=== PATIENT | female | born 1980 | race Caucasian/White ===

== ENCOUNTER 2022-10-11 20:40 | Emergency (ER) | payer SELFPAY ==
[2022-10-11 21:51] LABS: #Eosinphils 0.1 thou/uL (0.0-0.7); #Lymphocytes 1.7 thou/uL (1.20-3.40); #Monocytes 0.5 thou/uL (0.11-0.59); #Neutrophils 8.1 thou/uL (1.40-6.50); %Basophils 0.3 % (0.0-1.0); %Eosinophils 0.9 % (0.0-10.0); %Lymphocytes 16.2 % (21.0-51.0); %Monocytes 4.7 % (0.0-10.0); %Neutrophils 77.9 % (42.0-75.0); Hemoglobin 13.7 g/dL (12.0-16.0); Mean Corpuscular HGB CONC 34.7 g/dL (32.0-36.0); Mean Corpuscular Hemoglobin 31.4 pg (27.0-31.0); Mean Corpuscular Volume 90.7 fl (78.0-98.0); Mean Platelet Volume 9.2 fL (7.4-10.4); Platelet Count 173 10x3/uL (130-400); RBC Distribution Width 12.9 % (11.5-14.5); Red Blood Cell (RBC) Count 4.36 mill/uL (4.20-5.40); White Blood Cell (WBC) Count 10.4 10x3/uL (4.8-10.8)
[2022-10-11 22:05] LABS: ALT (SGPT) 122 U/L (8-55); AST (SGOT) 213 U/L (5-34); Alkaline Phosphatase 90 U/L (40-110); Anion Gap 16 mmol/L (10-20); BUN (Urea Nitrogen) 8 mg/dL (7.0-18.7); Bilirubin, Total 0.8 mg/dL (0.2-1.2); Calc. Creatinine Clearance 0 mL/min (70-130); Carbon Dioxide 23 mmol/L (22-29); Chloride 102 mmol/L (98-107); Estimated GFR 114; Globulin 2.9 g/dL (2.4-3.5); Glucose 104 mg/dL (70-105); Lipase 63 U/L (8-78); Potassium 3.6 mmol/L (3.5-5.1); Protein, Total 6.9 g/dL (6.0-8.3); Sodium 137 mmol/L (136-145)
== END 2022-10-11 22:19 | disposition left against medical advice (07) ==
LOC: ERS 20:40
DX: Z53.21 Procedure and treatment not carried out due to patient leaving prior to being seen by health care provider (principal)
CPT/HCPCS: 36415; 80053; 83690; 85025

== ENCOUNTER 2023-02-04 23:31 | Inpatient (IN) | payer OTHER ==
[2023-02-05] MEDS ORDERED: Ondansetron ODT 4 MG TAB PO PRN (01:02)
[2023-02-05] MEDS ORDERED: Senokot S 8.6-50 MG TAB PO PRN (01:02)
[2023-02-05] MEDS ORDERED: Acetaminophen 325 MG TAB PO PRN (01:02)
[2023-02-05 05:57] VITALS: BMI 22.7
[2023-02-05] MEDS: D5 1/2 NS w/20 mEq KCL 1,000 ML IV SCH ×3 (06:32→15:46)
[2023-02-05 06:35] LABS: #Basophils 0.1 thou/uL (0.0-0.2); #Eosinphils 0.3 thou/uL (0.0-0.7); #Monocytes 0.4 thou/uL (0.11-0.59); #Neutrophils 4.8 thou/uL (1.40-6.50); %Basophils 0.6 % (0.0-1.0); %Eosinophils 3.1 % (0.0-10.0); %Lymphocytes 31.2 % (21.0-51.0); %Monocytes 4.6 % (0.0-10.0); %Neutrophils 60.3 % (42.0-75.0); Hemoglobin 10.2 g/dL (12.0-16.0); Mean Corpuscular HGB CONC 32.3 g/dL (32.0-36.0); Mean Corpuscular Hemoglobin 26.6 pg (27.0-31.0); Mean Corpuscular Volume 82.5 fl (78.0-98.0); Mean Platelet Volume 11.7 fL (7.4-10.4); Platelet Count 179 10x3/uL (130-400); RBC Distribution Width 14.3 % (11.5-14.5); Red Blood Cell (RBC) Count 3.83 mill/uL (4.20-5.40)
[2023-02-05 07:00] LABS: ALT (SGPT) 134 U/L (8-55); AST (SGOT) 145 U/L (5-34); Albumin 3.4 g/dL (3.5-5.0); Alkaline Phosphatase 129 U/L (40-110); Anion Gap 11 mmol/L (10-20); BUN (Urea Nitrogen) 6 mg/dL (7.0-18.7); Bilirubin, Total 0.5 mg/dL (0.2-1.2); Calc. Creatinine Clearance 112 mL/min (70-130); Calcium 7.9 mg/dL (7.8-10.44); Carbon Dioxide 21 mmol/L (22-29); Chloride 110 mmol/L (98-107); Estimated GFR 111; Globulin 2.2 g/dL (2.4-3.5); Glucose 91 mg/dL (70-105); Potassium 3.2 mmol/L (3.5-5.1); Protein, Total 5.6 g/dL (6.0-8.3); Sodium 139 mmol/L (136-145)
[2023-02-05] MEDS ORDERED: Morphine 2 MG/ML VIAL SLOW IVP PRN ×2 (08:14→14:34)
[2023-02-05] MEDS: Ondansetron PF 4 MG/2 ML Vial IVP PRN ×2 (08:26→17:53)
[2023-02-05] MEDS ORDERED: Famotidine 20 MG TAB PO SCH (09:00)
[2023-02-05] MEDS ORDERED: Famotidine/PF 20 mg/2ml Vial SLOW IVP SCH (09:00)
[2023-02-05] MEDS ORDERED: Ketorolac Tromethamine 30 MG/ML VIAL IVP SCH (09:45)
[2023-02-05] MEDS ORDERED: Pantoprazole 40 MG VIAL IVP SCH (09:45)
[2023-02-05] MEDS ORDERED: Potassium Chloride 40 MEQ in Premix Bag 1 BAG IVPB SCH (10:00)
[2023-02-05] MEDS ORDERED: Piperacillin/Tazobactam 3.375 GM in Sodium Chloride 0.9% 100 ML IVPB SCH ×2 (10:00→12:00)
[2023-02-05] MEDS: Potassium Chloride 20 MEQ in Premix Bag 1 BAG IVPB SCH (11:33)
[2023-02-05] MEDS ORDERED: Bupivacaine HCl 0.5%/Epinephrine 1:200,000/PF 30 ml Vial ONE (12:31)
[2023-02-05] MEDS ORDERED: Iopamidol 15 ML ONE ×2 (12:31→13:43)
[2023-02-05] MEDS ORDERED: Midazolam HCl 2 mg/2 ml Vial ONE ×2 (12:44→13:06)
[2023-02-05] MEDS ORDERED: fentaNYL 50 mcg/mL 1 mL Vial ONE (12:44)
[2023-02-05] MEDS ORDERED: fentaNYL PF 100 MCG/2 ML SYRINGE ONE (12:44)
[2023-02-05] MEDS ORDERED: SUGAMMADEX SODIUM 200 MG/2 ML VIAL ONE (12:44)
[2023-02-05] MEDS ORDERED: Ketorolac Tromethamine 30 MG/ML VIAL ONE (13:00)
[2023-02-05] MEDS ORDERED: Rocuronium Bromide 10 MG/ML (10ML VIAL) ONE (13:00)
[2023-02-05] MEDS ORDERED: Esmolol 100 MG/10 ML VIAL ONE (13:00)
[2023-02-05] MEDS ORDERED: Ondansetron PF 4 MG/2 ML Vial ONE (13:00)
[2023-02-05] MEDS ORDERED: PROPOFOL 200 MG/20 ML VIAL ONE (13:00)
[2023-02-05] MEDS ORDERED: Lidocaine 1% PF 5 ML VIAL ONE (13:00)
[2023-02-05] MEDS ORDERED: Dexamethasone 20 MG/5 ML VIAL ONE (13:00)
[2023-02-05] MEDS ORDERED: HYDROmorphone 2 MG/ML VIAL ONE (13:06)
[2023-02-05] MEDS ORDERED: Dexmedetomidine 200 MCG/2 ML VIAL ONE (13:13)
[2023-02-05] MEDS ORDERED: Glucagon 1 MG/ML KIT ONE (13:43)
[2023-02-05] MEDS ORDERED: HYDROcodone/Acetaminophen 5/325 mg Tablet PO PRN (14:34)
[2023-02-05] MEDS: Piperacillin/Tazobactam 3.375 GM in Sodium Chloride 0.9% 100 ML IVPB SCH ×2 (15:46→22:35)
[2023-02-05] MEDS: Morphine 4 MG/ML VIAL SLOW IVP PRN ×2 (17:55→20:45)
[2023-02-05] MEDS: Pantoprazole 40 MG VIAL IVP SCH (20:53)
[2023-02-06] MEDS: HYDROcodone/Acetaminophen 5/325 mg Tablet PO PRN ×3 (01:31→18:21)
[2023-02-06] MEDS: Piperacillin/Tazobactam 3.375 GM in Sodium Chloride 0.9% 100 ML IVPB SCH ×3 (05:58→21:40)
[2023-02-06] MEDS: Morphine 4 MG/ML VIAL SLOW IVP PRN ×2 (05:58→21:41)
[2023-02-06 06:40] LABS: #Monocytes 0.6 thou/uL (0.11-0.59); #Neutrophils 8.4 thou/uL (1.40-6.50); %Basophils 0.3 % (0.0-1.0); %Eosinophils 0.1 % (0.0-10.0); %Lymphocytes 15.2 % (21.0-51.0); %Monocytes 5.6 % (0.0-10.0); %Neutrophils 78.6 % (42.0-75.0); Hemoglobin 10.1 g/dL (12.0-16.0); Mean Corpuscular HGB CONC 32.6 g/dL (32.0-36.0); Mean Corpuscular Hemoglobin 26.7 pg (27.0-31.0); Mean Platelet Volume 12.1 fL (7.4-10.4); Platelet Count 175 10x3/uL (130-400); RBC Distribution Width 14.3 % (11.5-14.5); Red Blood Cell (RBC) Count 3.78 mill/uL (4.20-5.40); White Blood Cell (WBC) Count 10.7 10x3/uL (4.8-10.8)
[2023-02-06 07:07] LABS: ALT (SGPT) 250 U/L (8-55); AST (SGOT) 259 U/L (5-34); Albumin 3.5 g/dL (3.5-5.0); Alkaline Phosphatase 162 U/L (40-110); Anion Gap 12 mmol/L (10-20); BUN (Urea Nitrogen) 5 mg/dL (7.0-18.7); Bilirubin, Total 0.7 mg/dL (0.2-1.2); Calc. Creatinine Clearance 105 mL/min (70-130); Calcium 8.6 mg/dL (7.8-10.44); Carbon Dioxide 22 mmol/L (22-29); Chloride 106 mmol/L (98-107); Estimated GFR 106; Globulin 2.5 g/dL (2.4-3.5); Glucose 104 mg/dL (70-105); Potassium 3.7 mmol/L (3.5-5.1); Sodium 136 mmol/L (136-145)
[2023-02-06] MEDS ORDERED: fentaNYL 50 mcg/mL 1 mL Vial ONE ×2 (07:57→10:02)
[2023-02-06] MEDS ORDERED: SUGAMMADEX SODIUM 200 MG/2 ML VIAL ONE (07:58)
[2023-02-06] MEDS: Pantoprazole 40 MG VIAL IVP SCH (08:04)
[2023-02-06] MEDS ORDERED: Iopamidol 30 ML ONE (08:11)
[2023-02-06] MEDS ORDERED: Indomethacin 50 MG SUPP ONE (08:11)
[2023-02-06] MEDS ORDERED: HYDROmorphone 0.5 MG/0.5 ML SYRINGE ONE (08:13)
[2023-02-06] MEDS ORDERED: Dexmedetomidine 200 MCG/2 ML VIAL ONE (08:19)
[2023-02-06] MEDS ORDERED: Midazolam HCl 2 mg/2 ml Vial ONE (08:19)
[2023-02-06] MEDS: D5 1/2 NS w/20 mEq KCL 1,000 ML IV SCH ×2 (08:23→17:55)
[2023-02-06] MEDS ORDERED: Rocuronium Bromide 10 MG/ML (10ML VIAL) ONE (08:49)
[2023-02-06] MEDS ORDERED: Succinylcholine 200 MG/10 ml SYRINGE FS ONE (08:49)
[2023-02-06] MEDS ORDERED: Dexamethasone 20 MG/5 ML VIAL ONE (08:49)
[2023-02-06] MEDS ORDERED: Ondansetron PF 4 MG/2 ML Vial ONE (08:49)
[2023-02-06] MEDS ORDERED: Glycopyrrolate 0.2 MG/ML 5 ML SYRINGE ONE (08:49)
[2023-02-06] MEDS ORDERED: Lidocaine 1% PF 5 ML VIAL ONE (08:49)
[2023-02-06] MEDS ORDERED: PROPOFOL 200 MG/20 ML VIAL ONE (08:49)
[2023-02-06] MEDS ORDERED: HYDROmorphone 2 MG/ML VIAL SLOW IVP PRN (09:13)
[2023-02-06] MEDS ORDERED: Morphine Sulfate 2 MG/ML SYRINGE SLOW IVP PRN (09:13)
[2023-02-06] MEDS ORDERED: Ondansetron HCl/PF 4 MG/2 ML Vial IVP PRN (09:13)
[2023-02-06] MEDS ORDERED: Promethazine HCl 25 MG/ML VIAL IM PRN (09:13)
[2023-02-06] MEDS ORDERED: Meperidine HCl/PF 25 MG/ML VIAL SLOW IVP PRN (09:13)
[2023-02-06] MEDS ORDERED: Meperidine HCl/PF 25 MG/ML VIAL ONE (10:13)
[2023-02-06] MEDS ORDERED: D5 1/2 NS w/20 mEq KCL 1,000 ML ONE (10:35)
[2023-02-06] MEDS: Ondansetron PF 4 MG/2 ML Vial IVP PRN (11:21)
[2023-02-06] MEDS: Ketorolac Tromethamine 30 MG/ML VIAL IVP SCH (11:21)
[2023-02-06] MEDS: Simethicone Chewable 80 MG TAB PO PRN (15:48)
[2023-02-07] MEDS: Pantoprazole 40 MG VIAL IVP SCH ×2 (00:11→08:07)
[2023-02-07 00:59] VITALS: TEMP 98
[2023-02-07] MEDS: Piperacillin/Tazobactam 3.375 GM in Sodium Chloride 0.9% 100 ML IVPB SCH (06:27)
[2023-02-07 06:47] LABS: #Monocytes 0.6 thou/uL (0.11-0.59); #Neutrophils 5.8 thou/uL (1.40-6.50); %Basophils 0.4 % (0.0-1.0); %Eosinophils 0.4 % (0.0-10.0); %Lymphocytes 28.2 % (21.0-51.0); %Monocytes 6.4 % (0.0-10.0); %Neutrophils 64.3 % (42.0-75.0); Hemoglobin 9.3 g/dL (12.0-16.0); Mean Corpuscular HGB CONC 31.4 g/dL (32.0-36.0); Mean Corpuscular Hemoglobin 26.2 pg (27.0-31.0); Mean Corpuscular Volume 83.4 fl (78.0-98.0); Mean Platelet Volume 12.4 fL (7.4-10.4); Platelet Count 153 10x3/uL (130-400); RBC Distribution Width 14.5 % (11.5-14.5); Red Blood Cell (RBC) Count 3.55 mill/uL (4.20-5.40); White Blood Cell (WBC) Count 9.1 10x3/uL (4.8-10.8)
[2023-02-07 07:15] LABS: ALT (SGPT) 155 U/L (8-55); AST (SGOT) 76 U/L (5-34); Albumin 3.2 g/dL (3.5-5.0); Alkaline Phosphatase 121 U/L (40-110); Anion Gap 10 mmol/L (10-20); BUN (Urea Nitrogen) 7 mg/dL (7.0-18.7); Bilirubin, Total 0.3 mg/dL (0.2-1.2); Calc. Creatinine Clearance 114 mL/min (70-130); Calcium 8.5 mg/dL (7.8-10.44); Carbon Dioxide 25 mmol/L (22-29); Chloride 109 mmol/L (98-107); Estimated GFR 112; Globulin 2.1 g/dL (2.4-3.5); Glucose 132 mg/dL (70-105); Potassium 3.7 mmol/L (3.5-5.1); Protein, Total 5.3 g/dL (6.0-8.3); Sodium 140 mmol/L (136-145)
[2023-02-07 07:47] VITALS: BP 113/69
[2023-02-07] MEDS: HYDROcodone/Acetaminophen 5/325 mg Tablet PO PRN (08:07)
[2023-02-07] MEDS: D5 1/2 NS w/20 mEq KCL 1,000 ML IV SCH (08:07)
[2023-02-07] MEDS: Simethicone Chewable 80 MG TAB PO PRN (08:08)
[2023-02-07] MEDS: Ketorolac Tromethamine 30 MG/ML VIAL IVP SCH (11:10)
== END 2023-02-07 11:58 | disposition home or self-care (01) | DRG 418 ==
LOC: T4-A 02-05 01:02
PROVIDERS: ADMIT Student in an Organized Health Care Education/Training Program; ATTEND Internal Medicine
PROC: 0FT44ZZ Resection of Gallbladder, Percutaneous Endoscopic Approach (ICD-10-PCS; principal; 2023-02-05)
PROC: BF141ZZ Fluoroscopy of Gallbladder, Bile Ducts and Pancreatic Ducts using Low Osmolar Contrast (ICD-10-PCS; 2023-02-05)
PROC: 0FC98ZZ Extirpation of Matter from Common Bile Duct, Via Natural or Artificial Opening Endoscopic (ICD-10-PCS; 2023-02-06)
DX: K80.62 Calculus of gallbladder and bile duct with acute cholecystitis without obstruction (principal); C64.9 Malignant neoplasm of unspecified kidney, except renal pelvis; D18.00 Hemangioma unspecified site; J45.909 Unspecified asthma, uncomplicated; E66.9 Obesity, unspecified; F41.9 Anxiety disorder, unspecified; F32.A Depression, unspecified; Z90.49 Acquired absence of other specified parts of digestive tract; Z87.891 Personal history of nicotine dependence; Z98.84 Bariatric surgery status; Z68.22 Body mass index [BMI] 22.0-22.9, adult
CPT/HCPCS: 36415; 47532; 74330; 80053; 85025; 88304; C1725; C1889; C9113; J1100; J1170; J1611; J1885; J2175; J2250; J2270; J2272; J2405; J2543; J2704; J3010; J3480; J3490; Q9967; S0028